=== PATIENT | female | born 1990 | race Caucasian/White ===

== ENCOUNTER 2018-08-01 13:02 | Emergency (ER) | payer OTHER ==
--- NOTE | 2018-08-01 13:41 | ER ---
Nurse's Notes [facility] Name: Michelle Valles Age: 27 yrs Sex: Female : 1990 Arrival Date: 08/01/2018 Time: 13:05 Bed Waiting Private MD: Zeke Ruiz Diagnosis: ED Course: 08/01 13:05 Patient arrived in ED. as 13:05 Zeke Ruiz MD is Private Physician. as Administered Medications: No medications were administered Outcome: 13:40 Patient left the ED. aj1 Signatures: Tesha Delgadillo RN RN aj1 Mayra Bueno
== END 2018-08-01 13:40 | disposition left against medical advice (07) ==
LOC: ER 13:02
DX: Z53.21 Procedure and treatment not carried out due to patient leaving prior to being seen by health care provider (principal)